=== PATIENT | female | born 1955 ===

== ENCOUNTER → 2018-10-23 | Outpatient (CLI) | payer OTHER ==
--- NOTE | 2018-10-23 10:14 | RADIOLOGY IMAGING REPORT ---
FACILITY: [facility] - [place] PATIENT NAME: Jennifer Arora : 1955 MR: [id number] V: [id number] EXAM DATE: ORDERING PHYSICIAN: SHEREE GARDUNO TECHNOLOGIST: Location: [facility] - [place] Patient: Jennifer Arora : 1955 Visit/Account:[id number] Date of Sevice: 10/23/2018 DEXA Scan Clinical history: Osteopenia, postmenopausal. Comparison: None available. LUMBAR SPINE: The bone mineral density (BMD) measured from L1-L4 correlates with a Z-score 0.9 and a T-score of -1 which is Normal as defined by the World Health Organization. The corresponding risk of fracture in t he lumbar spine is Not increased compared with a young adult reference population. HIP: Bone mineral density (BMD) measured in the Left total hip region correlates with a Z-score -0.9 and a T-score of -2.4 which is osteopenia as defined by the World Health Organization. The corresponding risk of fracture in the hip is 4-6 times increased compared with a young adult reference population. T score left femoral neck -2.5 Bone mineral density (BMD) measured in the Femoral Neck region measures 0.694 g/cm2. Impression: 1. Lumbar spine: Normal. 2. Left Hip: Osteopenia. 3. Femoral Neck: Bone Mineral Density is 0.694 g/cm2 The next DEXA scan of this patient should include the following sites: L1-L4 and the left hip. FRAX? WHO Fracture Risk Assessment Tool link: <http://www.shef.ac.uk/FRAX/tool.jsp?locationValue=9> PLEASE NOTE: 1) The World Health Organization defines low BMD as follows: T-score Normal > -1 Osteopenia < -1 and > -2.5 Osteoporosis < -2.5 without fractures Established osteoporosis < -2.5 with fractures 2) In general, you may wish to consider: Diagnosis Treatment Follow-up DEXA Normal BMD Prevention 2-3 years Osteopenia Prevention/therapy 1-2 years Osteoporosis Therapy Yearly 3) Fracture risk estimated from the T-score is more accurate for vertebral fractures (often spontane ous) than for hip fractures. Report Dictated By: Roxanne Farris MD at 10/23/2018 10:06 AM Report E-Signed By: Roxanne Farris MD at 10/23/2018 10:07 AM LAWRENCEN:RADHA
== END ==
LOC: RAD 08:11
PROVIDERS: ATTEND Internal Medicine
DX: M85.852 Other specified disorders of bone density and structure, left thigh (principal)
CPT/HCPCS: 77080

== ENCOUNTER → 2018-11-20 | Outpatient (CLI) | payer OTHER ==
[~2018-11-20] MED LIST: CHOL10005 PO; CYAN25004; CYCL10TA29 PO; INSU100V24 SQ; INSU100V8 SUBQ; LOSA-51 PO
--- NOTE | 2018-11-20 14:18 | RADIOLOGY IMAGING REPORT ---
FACILITY: [facility] - [place] PATIENT NAME: Jennifer Arora : 1955 MR: [id number] V: [id number] EXAM DATE: ORDERING PHYSICIAN: AKIKO PATEL TECHNOLOGIST: Location: [facility] Patient: Jennifer Arora : 1955 Visit/Account:[id number] Date of Sevice: 11/20/2018 Exam type: CERVICAL SPINE MIN 4 VIEW History: Neck pain and left arm numbness Comparison: None. Findings: Five views were submitted. There is a reversal of the normal cervical doses and a mild kyphosis cent ered about C5-6. There has been a bony fusion of the C5-C6 and C7 vertebral bodies. Small anterior osteophytes are noted at at C4-5. Moderate anterior osteophytes are noted at C7-T1 where there is mo derate disc space narrowing. IMPRESSION: 1. Postsurgical changes from bony fusion of the C5-C7 vertebral bodies with reversal of the normal c ervical lordosis as detailed above. Additional spondylotic changes at C4-5 and C7-T1 Report Dictated By: Roxanne Farris MD at 11/20/2018 2:08 PM Report E-Signed By: Roxanne Farris MD at 11/20/2018 2:10 PM WSN:RADHA
== END ==
LOC: RAD 11:07
PROVIDERS: ATTEND Nurse Practitioner Primary Care
DX: M47.812 Spondylosis without myelopathy or radiculopathy, cervical region (principal); Z98.1 Arthrodesis status
CPT/HCPCS: 72050